=== PATIENT | male | born 1995 | race Caucasian/White ===

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

== ENCOUNTER 2017-08-31 00:49 | Emergency (ER) | payer OTHER ==
[~2017-08-31] VITALS: Ht 170.2 cm; Wt 72.6 kg
[2017-08-31] MEDS ORDERED: PERCOCET 5/31 TABLET PO (02:15)
[2017-08-31 02:32] VITALS: BP 132/74
== END 2017-08-31 02:33 | disposition home or self-care (01) ==
LOC: EME 00:49
PROC: 2W3DX1Z Immobilization of Left Lower Arm using Splint (ICD-10-PCS; principal; 2017-08-31)
DX: S62.321A Displaced fracture of shaft of second metacarpal bone, left hand, initial encounter for closed fracture (principal); W22.01XA Walked into wall, initial encounter
CPT/HCPCS: 73130; 99281; 99283